=== PATIENT | male | born 2000 | race Caucasian/White ===

== ENCOUNTER → 2022-01-09 | Outpatient (CLI) | payer OTHER ==
[2022-01-09 09:27] LABS: HEMOGLOBIN 16.9 gm/dl (14.0-17.5); RED BLOOD COUNT 5.63 M/UL (4.20-5.50); WHITE BLOOD COUNT 8.6 K/UL (4.5-11.0)
[2022-01-09 09:50] LABS: BUN/CREATININE RATIO 20 (0-10)
== END ==
LOC: LAB 08:51
PROVIDERS: Family Medicine
DX: J30.9 Allergic rhinitis, unspecified (principal); F32.A Depression, unspecified; R53.83 Other fatigue
CPT/HCPCS: 36415; 80053; 82607; 82785; 84402; 84403; 84443; 85025